=== PATIENT | male | born 1995 | race Caucasian/White ===

== ENCOUNTER 2017-02-08 10:20 | Emergency (ER) | payer OTHER ==
[~2017-02-08] VITALS: Ht 180.3 cm; Wt 88.5 kg
[2017-02-08 10:20] VITALS: BP 118/70
[~2017-02-08 10:20] MED LIST: GUAI200T PO; IBUPOTC PO
[2017-02-08] MEDS ORDERED: PROZ20CA11 (10:38)
[2017-02-08] MEDS ORDERED: CONC54TA4 (10:38)
[2017-02-08] MEDS ORDERED: CLEO300C2 PO (11:52)
[2017-02-08] MEDS ORDERED: CODE30TA3 PO (11:54)
[2017-02-08] MEDS ORDERED: NAPR500T2 PO (11:56)
[2017-02-08] MEDS ORDERED: CLINDAMYCIN 150 MG CAP PO ONE (12:00)
[2017-02-08] MEDS ORDERED: KETOROLAC 60 MG/2 ML VIAL (J1885) IM ONE (12:00)
== END 2017-02-08 12:14 | disposition home or self-care (01) ==
LOC: M ED 11:22
DX: K04.7 Periapical abscess without sinus (principal); F41.9 Anxiety disorder, unspecified; F90.9 Attention-deficit hyperactivity disorder, unspecified type; F17.200 Nicotine dependence, unspecified, uncomplicated; Z90.89 Acquired absence of other organs; Z79.899 Other long term (current) drug therapy

== ENCOUNTER → 2018-04-12 | Outpatient (CLI) | payer OTHER ==
[2018-04-12 13:53] LABS: BASO # 0.1 10^3/uL (0.0-0.2); BASO % 0.8 % (0.0-1.0); EOS # 0.5 10^3/uL (0.0-0.50); EOS % 5.3 % (0.0-3.0); HEMOGLOBIN 14.4 g/dl (13.5-17.5); IMMATURE GRANULOCYTE % 0.5 % (0-3.0); LYMPH # 2.1 10^3/uL (1.5-6.5); LYMPH % 21.7 % (24.0-44.0); MEAN CORPUSCULAR HEMOGLOBIN 29.6 pg (27.0-33.0); MEAN CORPUSCULAR HGB CONC 32.7 g/dl (32.0-36.5); MEAN CORPUSCULAR VOLUME 90.3 fl (80.0-96.0); MONO # 0.7 10^3/uL (0.0-0.8); MONO % 7.4 % (0.0-5.0); NEUTROPHILS # 6.1 10^3/uL (1.8-7.7); NEUTROPHILS % 64.3 % (36.0-66.0); PLATELET COUNT, AUTOMATED 255 10^3/uL (150-450); RED BLOOD COUNT 4.87 10^6/uL (4.30-6.10); WHITE BLOOD COUNT 9.5 10^3/uL (4.0-10.0)
[2018-04-12 15:57] LABS: ALBUMIN/GLOBULIN RATIO 1.14 (1.00-1.93); ALKALINE PHOSPHATASE 77 U/L (45-117); ALT/SGPT 18 U/L (12-78); ANION GAP 6 MEQ/L (8-16); AST/SGOT 16 U/L (7-37); BILIRUBIN,TOTAL 0.2 MG/DL (0.2-1.0); BLOOD UREA NITROGEN 11 MG/DL (7-18); CALCIUM LEVEL 8.9 MG/DL (8.5-10.1); CARBON DIOXIDE LEVEL 28 MEQ/L (21-32); CHLORIDE LEVEL 107 MEQ/L (98-107); CHOLESTEROL LEVEL 140 MG/DL (<200); CREATININE FOR GFR 0.65 MG/DL (0.70-1.30); GLOMERULAR FILTRATION RATE > 60.0 (>60); GLUCOSE, FASTING 86 MG/DL (70-100); HDL CHOLESTEROL 40 MG/DL (>40); LDL CHOLESTEROL 86.6 MG/DL (<100); NON-HDL-C 100 MG/DL; POTASSIUM SERUM 4.9 MEQ/L (3.5-5.1); SODIUM LEVEL 141 MEQ/L (136-145); THYROID STIMULATING HORMONE 0.723 uIU/ML (0.358-3.740); TOTAL PROTEIN 7.5 GM/DL (6.4-8.2); TRIGLYCERIDES LEVEL 67 MG/DL (<150)
[2018-04-12 16:48] LABS: ESTIMATED AVERAGE GLUCOSE 97 MG/DL (60-110)
[2018-04-19 11:18] LABS: SUMMARY SEE SEPARATE REPORT
== END ==
LOC: M SMT 09:28
DX: Z13.220 Encounter for screening for lipoid disorders (principal); Z13.228 Encounter for screening for other metabolic disorders; M54.5 Low back pain
CPT/HCPCS: 84443

== ENCOUNTER 2018-04-14 07:48 | Outpatient (RCR) | payer OTHER | END 2018-04-30 | LOC: M PT 07:48 | DX: Z51.89 Encounter for other specified aftercare (principal); M54.5 Low back pain | CPT/HCPCS: 97010 ==

== ENCOUNTER 2018-05-04 07:24 | Outpatient (RCR) | payer OTHER | END 2018-05-30 | LOC: M PT 07:24 | DX: Z51.89 Encounter for other specified aftercare (principal); M54.5 Low back pain | CPT/HCPCS: 97010 ==

== ENCOUNTER 2021-02-10 14:37 | Emergency (ER) | payer MEDICAID, SELFPAY ==
[~2021-02-10] VITALS: Ht 180.3 cm; Wt 68.1 kg
[~2021-02-10 14:37] MED LIST changes: +ACET300T47 PO; +CLEO300C2 PO; +CONC54TA4; -GUAI200T PO; +GUAI200T6 PO; +NAPR-885 PO; +PROZ20CA11
[2021-02-10 14:49] VITALS: BP 140/93
== END 2021-02-10 16:41 | disposition home or self-care (01) ==
LOC: M ED 14:37
DX: F43.0 Acute stress reaction (principal); Z91.5 Personal history of self-harm; F17.200 Nicotine dependence, unspecified, uncomplicated; F12.10 Cannabis abuse, uncomplicated; F19.10 Other psychoactive substance abuse, uncomplicated

== ENCOUNTER 2021-02-23 01:18 | Inpatient (IN) | payer MEDICAID, SELFPAY ==
[~2021-02-23] VITALS: Ht 180.3 cm; Wt 68.1 kg
[2021-02-23 01:58] LABS: HEMATOCRIT 42.3 % (42.0-52.0); HEMOGLOBIN 14.2 g/dl (13.5-17.5); MEAN CORPUSCULAR HGB CONC 33.6 g/dl (32.0-36.5); MEAN CORPUSCULAR VOLUME 89.2 fl (80.0-96.0); PLATELET COUNT, AUTOMATED 243 10^3/uL (150-450); RED BLOOD COUNT 4.74 10^6/uL (4.30-6.10); WHITE BLOOD COUNT 8.4 10^3/uL (4.0-10.0)
[2021-02-23 02:29] LABS: ACETAMINOPHEN LEVEL < 2.0 UG/ML (10.0-30.0); ALBUMIN 4.2 GM/DL (3.2-5.2); ALT/SGPT 34 U/L (12-78); BILIRUBIN,DIRECT 0.2 MG/DL (0.0-0.2); BILIRUBIN,TOTAL 0.5 MG/DL (0.2-1.0); BLOOD UREA NITROGEN 16 MG/DL (7-18); CALCIUM LEVEL 8.9 MG/DL (8.5-10.1); CARBON DIOXIDE LEVEL 26 MEQ/L (21-32); CHLORIDE LEVEL 107 MEQ/L (98-107); CREATININE FOR GFR 0.76 MG/DL (0.70-1.30); ETHYL ALCOHOL (ETHANOL) 0.003 % (0.000-0.010); GLOMERULAR FILTRATION RATE > 60.0 (>60); GLUCOSE, FASTING 78 MG/DL (70-100); POTASSIUM SERUM 3.8 MEQ/L (3.5-5.1); SALICYLATE LEVEL 5.9 MG/DL (5.0-30.0); SODIUM LEVEL 139 MEQ/L (136-145); THYROID STIMULATING HORMONE 0.679 uIU/ML (0.358-3.740); TOTAL PROTEIN 7.7 GM/DL (6.4-8.2)
[2021-02-23 02:30] LABS: AMPHETAMINES LEVEL URINE NEGATIVE (NEGATIVE); BARBITURATES URINE NEGATIVE (NEGATIVE); BENZODIAZEPINES URINE NEGATIVE (NEGATIVE); CANNABINOIDS URINE POSITIVE (NEGATIVE); COCAINE METABOLITE URINE NEGATIVE (NEGATIVE); METHADONE URINE NEGATIVE (NEGATIVE); OPIATES URINE NEGATIVE (NEGATIVE); PHENCYCLIDINE URINE NEGATIVE (NEGATIVE)
[2021-02-23] MEDS ORDERED: NICOTINE 21MG/24HR 1 EA TRANSDERMAL TD ONE ×2 (03:55→16:20)
--- NOTE | 2021-02-23 20:50 | ECGEPIP ---
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
[2021-02-25] MEDS: NICOTINE 21MG/24HR 1 EA TRANSDERMAL TD SCH (09:00)
[2021-02-25] MEDS ORDERED: MOM 30ML SUSPENSION UDC PO PRN (12:25)
[2021-02-25] MEDS ORDERED: MAALOX 30 ML SUSP *UDC PO PRN (12:25)
[2021-02-25] MEDS ORDERED: ACETAMINOPHEN TAB 650MG DOSE (2X325MG) PO PRN (12:25)
[2021-02-25 12:31] LABS: RSV AMPLIFICATION NEGATIVE (NEGATIVE)
[2021-02-25 14:00] VITALS: BP 106/62
[2021-02-25] MEDS: traZODone 50 MG TAB PO PRN (22:12)
[2021-02-26] MEDS ORDERED: traZODone 50 MG TAB PO ONE (00:30)
[2021-02-26 07:28] VITALS: BP 116/64
[2021-02-26] MEDS: NICOTINE 21MG/24HR 1 EA TRANSDERMAL TD SCH (09:00)
--- NOTE | 2021-02-26 11:54 | MHHPEPDOC ---
General Date Of Admission: Feb 25, 2021 Legal Status: 9.39 Chief Complaint I'm depressed, I cannot sleep and the I'm anxious, restless, and need help". History of Present Illness HISTORY OF THE PRESENT ILLNESS: Patient is a 25 -year-old , male, who [has no current outpatient treatment and has no previous inpatient treatment but has been in counseling 2 years ago for depression. Patient was recently seen at the emergency room and discharged to follow up with the counseling, but didn't follow-up with any recommended treatment. Patient came back to the emergency room reporting feeling anxious, depressed, feeling restless, not able to sleep and not able to function and seeking help. He stated that he always had a problem with fear of failing in life and had frequent depression but never consistently received any treatment. Patient apparently used Clarisa with his common-law while they have 5-year-old son and the CPS is involved in the child was removed from home. Patient reports feeling extremely anxious, fearful, depressed, and seeking help. He denies any psychotic symptoms. Denies any history of jessi and denies any suicidal thoughts, plan or intent.]. Psychiatric Review of Systems Depression (2 or more weeks): depressed mood, insomnia/hypersomnia, feelings of worthlesness, difficulty concentrating, psychomotor changes Jessi (4 or more days of): denies Psychosis: denies PTSD: denies Anxiety: situational anxiety Anxiety/ 6 months or more of: other (anxious about not being able to consistently perform) Past Psychiatric History Previous Psychiatric Diagnosis: . ADHD Previous Psychiatric Admissions: . No inpatient treatment Suicide Attempts: . No history of suicide attempt Psychiatric Follow-up: ., Not in any outpatient treatment Psychiatric medications: . Has been on Adderall in the past Past Medical History Medical Problems Denies any major medical issues Head Injury: No Seizures: No Hospitalizations: No Surgeries: No Family Medical/Psychiatric HX Medical Problems Noncontributory Psychiatric Disorders: Yes (mother has a history of severe depression) Addiction: No Suicide Attemps/Completions: No Addiction History denies (. Patient was using Clarisa) Social History Childhood: . Have ADHD Abuse/Trauma:. Denies any history of the abuse Current Living Situation: . Lives with his common-law of 2 years and 5-mo nth-old son Education: . High school Employment: . 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 Denies any legal issues Marital: . Not legally met Mental Status Examination General Appearance: appears stated age Build: average Demeanor: very figety Eye Contact: average Activity: anxious Behavior: cooperative, restless Speech: rapid, pressured, low in volume Mood: depressed, anxious Mood Long story of the depression on and off Affect: full, appropriate, labile, congruent, anxious Thought Process: logical/linear, depressed Thought Content (Delusions): none reported Thought Content (Other): none reported Thought Content (Aggressive): none reported Perception (Hallucinations): none reported Perception (Other): none reported Cognition (Impairment of): none reported Cognition(Intelligence Est.): average Oriented: Awake, Alert, Oriented times three Insight: fair Judgment: Poor Psychosis: Denies Diagnoses Major depression, recurrent A-FIB/CHADSVASC A-FIB History Current/History of A-Fib/PAF?: No Current PO Anticoag Therapy: No Age/Risk Factor Scoring CHADSVASC: CHADSVASC Response (Comments) Value Gender Risk Factor Male 0 Hx of CHF No 0 Hx of HTN No 0 Hx of Stroke/TIA/or VTE No 0 Hx of Diabetes No 0 Hx of Vascular Disease No 0 Total 0 Treatment Treatment ordered: NONE Assessment Significant depression but also possible drug abuse. Patient is not psychotic and no history of jessi and no history of the consistent treatment. Needs stabilization with the antidepressant and some antianxiety medicine initial Initial Treatment Plan 1. Patient was admitted on a 9.39 status. 2. Complete history was obtained. 3. With patients permission, family will be contacted and database will be expanded. 4. Patients medication regimen will be reviewed and changed accordingly. 5. Patient will be provided with protected environment. 6. Patient will be treated with individual, group, and milieu therapies. 7. Patient will receive supportive psych-education. 8. Discharge planning will commence immediately. 9. Outpatient follow-up treatment will be strongly recommended. 10. The initial treatment plan will focus initially on: * Depression. * Risk for suicide. ESTIMATED LENGTH OF STAY: 3-5 DAYS. TIME SPENT COUNSELING AND COORDINATING INITIAL CARE: 45 minutes. Tobacco Cessation Screen If Patient is a Smoker Yes Tobacco Cessation Tx Ordered?: Yes N/A-No Antipsychotics Medications No Active Prescriptions or Reported Meds Allergies Coded Allergies: No Known Allergies (Verified , 12/02/03) MARVA BURNHAM M.D. 29, 2021 11:54
[2021-02-26] MEDS: SERTRALINE HCL 50 MG TAB PO SCH (11:58)
[2021-02-26] MEDS: LORazepam 1 MG TAB PO SCH ×3 (11:58→20:18)
--- NOTE | 2021-02-26 17:09 | HPEPDOC ---
[facility] Medical History & Physical Date of Admission Feb 25, 2021 Date of Service: Feb 26, 2021 History and Physical CHIEF COMPLAINT: Depression HISTORY OF PRESENT ILLNESS: PAST MEDICAL HISTORY: 1. Chronic low back pain 2. Marijuana use. 3. Nicotine use disorder. PAST SURGICAL HISTORY: 1. Nose reconstruction surgery in 1999. 2. Appendectomy in 2003. SOCIAL HISTORY: Tobacco use: Current smoker. Smoked for 4 years ETOH: Denies Illicit drug use: Marijuana FAMILY HISTORY: Mother: Diabetes mellitus, hypertension, heart disease ALLERGIES: Please see below. REVIEW OF SYSTEMS: CONSTITUTIONAL: Denies any fever or chills. ENT: Denies sore throat. RESPIRATORY: Reports chronic chest congestion. Denies shortness of breath. CARDIOVASCULAR: Denies chest pain. GASTROINTESTINAL: Denies abdominal pain. Denies diarrhea. GENITOURINARY: Denies dysuria. CUTANEOUS: Denies rashes. MUSCULOSKELETAL: Denies muscle weakness. NEUROLOGICAL: Denies paresthesias. PSYCHOLOGICAL: Reports stress and anxiety. HOME MEDICATIONS: Please see below. PHYSICAL EXAMINATION: VITAL SIGNS: Temperature 99.6, pulse 67, respiratory rate 18, blood pressure 116/64, pulse oximetry 97% on room air. GENERAL: Comfortable, in no apparent distress. HEENT: Head normocephalic/atraumatic, EOMI, sclera clear. NECK: Supple. RESPIRATORY: Lungs clear to auscultation bilaterally, no rales, wheeze or rhonchi. CARDIOVASCULAR: Regular rate and rhythm. ABDOMEN: Soft, nontender, no guarding or rebound tenderness. Normal bowel sounds. MUSCLE SKELETAL: Muscle strength 5/5 in all extremities. NEUROLOGICAL: CN 3-12 grossly intact, no focal deficits noted. PSYCHOLOGICAL: Normal mood and affect LABORATORY DATA: See below. IMAGING: None MICROBIOLOGY: Please see below. ASSESSMENT and PLAN: 1. Depression. Being managed in the inpatient mental health unit 2. Nicotine use disorder Patient refused nicotine patch. Patient is considering cessation from smoking 3. 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 We will sign off at this time. If there is any further questions or concerns, please do not hesitate to reconsult us. Vital Signs Vital Signs Date Time Temp Pulse Resp B/P (MAP) Pulse Ox O2 Delivery O2 Flow Rate FiO2 02/26/21 08:50 Room Air 02/26/21 07:28 99.6 67 18 116/64 (81) 97 Home Medications No Active Prescriptions or Reported Meds Allergies Coded Allergies: No Known Allergies (Verified , 12/02/03) A-FIB/CHADSVASC A-FIB History Current/History of A-Fib/PAF?: No MALIA BUSTOS DO Feb 26, 2021 17:09
[2021-02-26 18:45] VITALS: BP 124/77
[2021-02-26] MEDS: traZODone 50 MG TAB PO PRN (22:38)
[2021-02-27 06:47] VITALS: BP 100/58
[2021-02-27] MEDS: NICOTINE 21MG/24HR 1 EA TRANSDERMAL TD SCH (08:27)
[2021-02-27] MEDS: LORazepam 1 MG TAB PO SCH (08:27)
[2021-02-27] MEDS: SERTRALINE HCL 50 MG TAB PO SCH (08:27)
--- NOTE | 2021-02-27 08:45 | MHIPNPDOC ---
[facility] Progress Note Progress Note DATE OF SERVICE: 02/27/21 The patient reports that she is feeling much better today and had the good night sleep. He is now admitting that he's been using Clarisa to 3 times a week for qu ite a while and the last use was a week before his admission. He also admits that CPS was involved and his son was taken away, but his back home with his girlfriend and is feeling much better about the situation. He is not as labile or tearful and is much less pressured and in better control. 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 He is tolerating his Zoloft without any side effect, and has no new complaints. HISTORY: . VITAL SIGNS: See below. NEW TEST RESULTS: . CURRENT MEDICATIONS: See below. MENTAL STATUS EXAMINATION: Patient is a 25 -year old male, who is , pleasant and cooperative. Speech: Is rational productive. Language skills are good. Thought processes including: , Coherent, not as pressured. Thought content: No suicidal thoughts. Abstract reasoning, and computation: fair. Description of associations: Are organized. Description of abnormal or psychotic thoughts: Denies any. Judgment: fair. Insight: fair. Orientation: , Oriented. Recent and remote memory: fair. Attention span and concentration: fair. Language: . Fund of knowledge: . Mood: , Not as anxious or depressed. Affect: , Not as labile and appropriate. DIAGNOSES: 1. Depressive disorder, NOS. 2. . Substance use disorder 3. . ASSESSMENT:[Showing improved mental status and denies any lethality] MANAGEMENT PLAN: [. Continue with the Zoloft decrease his Ativan]. TIME SPENT: [20] minutes. Vital Signs Vital Signs Date Time Temp Pulse Resp B/P (MAP) Pulse Ox O2 Delivery O2 Flow Rate FiO2 02/27/21 06:47 100.1 88 18 100/58 (72) 97 Room Air Current Medications Current Medications Medications (Trade) Dose Ordered Sig/Casandra Route PRN Reason Start Time Stop Time Status Last Admin Dose Admin Acetaminophen (Tylenol Tab) 650 mg Q6HP PRN PO HEADACHE or MILD DISCOMFORT 02/25/21 12:25 Al Hydrox/Mg Hydrox/Simethicone (Mylanta) 30 ml Q4HP PRN PO HEARTBURN/INDIGESTION 02/25/21 12:25 Lorazepam (Ativan) 1 mg TID PO 02/26/21 09:00 02/27/21 08:27 Magnesium Hydroxide (Milk Of Magnesia) 30 ml DAILYPRN PRN PO CONSTIPATION 02/25/21 12:25 Nicotine (Nicoderm Cq 21mg) 1 patch DAILY TD 02/25/21 09:00 Sertraline HCl (Zoloft) 50 mg DAILY PO 02/26/21 09:00 02/27/21 08:27 Trazodone HCl (Desyrel) 50 mg QHSP PRN PO INSOMNIA 02/25/21 12:25 02/26/21 22:38 Allergies Coded Allergies: No Known Allergies (Verified , 12/02/03) MARVA BURNHAM M.D. Feb 27, 2021 08:45
[2021-02-27] MEDS: LORazepam 0.5 MG TAB PO SCH ×2 (15:59→20:33)
[2021-02-27 18:43] VITALS: BP 133/82
[2021-02-27] MEDS: traZODone 50 MG TAB PO PRN (22:42)
[2021-02-28 06:28] VITALS: BP 144/86
[2021-02-28] MEDS: SERTRALINE HCL 50 MG TAB PO SCH (08:20)
[2021-02-28] MEDS: LORazepam 0.5 MG TAB PO SCH (08:20)
[2021-02-28] MEDS ORDERED: SERT50TA29 PO (08:48)
== END 2021-02-28 09:40 | disposition home or self-care (01) | DRG 776 ==
LOC: M ED 01:18 → M ED INP 02-25 12:25 → M PSY 02-25 13:27
PROVIDERS: ADMIT Psychiatry & Neurology Psychiatry; ATTEND Psychiatry & Neurology Psychiatry
DX: F16.14 Hallucinogen abuse with hallucinogen-induced mood disorder (principal); Z81.8 Family history of other mental and behavioral disorders; F32.89 Other specified depressive episodes; Z20.822 Contact with and (suspected) exposure to COVID-19; Z63.5 Disruption of family by separation and divorce; M54.5 Low back pain; G89.29 Other chronic pain; F17.210 Nicotine dependence, cigarettes, uncomplicated; F12.10 Cannabis abuse, uncomplicated

== ENCOUNTER → 2021-03-07 | Outpatient (CLI) | payer MEDICAID ==
[~2021-03-07] MED LIST changes: +SERT50TA29 PO
== END ==
LOC: M OUTALCOH 08:25
PROVIDERS: ATTEND Psychiatry & Neurology Psychiatry
DX: F12.20 Cannabis dependence, uncomplicated (principal); F16.20 Hallucinogen dependence, uncomplicated

== ENCOUNTER 2021-03-27 15:00 | Outpatient (RCR) | payer MEDICAID | END 2021-03-30 | LOC: M OUTALCOH 15:00 | PROVIDERS: ATTEND Psychiatry & Neurology Psychiatry | DX: F16.20 Hallucinogen dependence, uncomplicated (principal); F12.20 Cannabis dependence, uncomplicated; F17.200 Nicotine dependence, unspecified, uncomplicated ==